=== PATIENT | female | born 1980 | race Caucasian/White ===

== ENCOUNTER 2020-02-05 15:50 | Emergency (ER) | payer OTHER ==
[~2020-02-05] VITALS: Ht 175.3 cm; Wt 83.0 kg
[2020-02-05] MEDS ORDERED: TAMIFLU75 MG PO (17:18)
[2020-02-05 17:26] VITALS: BP 157/109
== END 2020-02-05 17:53 | disposition home or self-care (01) ==
LOC: ER 15:50
DX: J11.1 Influenza due to unidentified influenza virus with other respiratory manifestations (principal); J45.909 Unspecified asthma, uncomplicated